=== PATIENT | female | born 1990 | race Caucasian/White ===

== ENCOUNTER 2017-06-26 23:06 | Emergency (ER) | payer MEDICAID ==
[~2017-06-26] VITALS: Ht 149.9 cm; Wt 57.2 kg
[~2017-06-26 23:06] MED LIST: IBUP-81 PO; PREN1KIT74 PO
[2017-06-26 23:18] VITALS: BP 144/90
[2017-06-27 02:20] VITALS: BP 130/82
== END 2017-06-27 02:18 | disposition home or self-care (01) ==
LOC: MED 23:06
DX: B34.9 Viral infection, unspecified (principal); Z79.899 Other long term (current) drug therapy
CPT/HCPCS: 81002; 81025; 82948; 99283